=== PATIENT | male | born 2000 | race Caucasian/White ===

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

== ENCOUNTER 2018-06-19 17:01 | Emergency (ER) | payer BC ==
--- NOTE | 2018-06-19 17:51 | ER Document Report ---
ED Hand/Wrist Injury - General Chief Complaint: Thumb Injury Stated Complaint: LEFT HAND INJURY Time Seen by Provider: 06/19/18 17:38 Mode of Arrival: Ambulatory Information source: Patient Notes: Patient is a 17-year-old otherwise healthy male who presents with chief complaint of 4 cm laceration to his left. Patient reports that he was fixing an axe when the Axe cut through his finger. TRAVEL OUTSIDE OF THE [place] IN LAST 30 DAYS: No - Related Data Allergies/Adverse Reactions: No Known Allergies Allergy (Verified 09/17/17 10:45) Past Medical History - General Information source: Patient - Social History Smoking Status: Current Every Day Smoker Lives with: Family Family History: Arthritis, CAD, CVA, DM, Hyperlipidemia, Hypertension, Malignancy Pulmonary Medical History: Reports: Hx Asthma Renal/ Medical History: Denies: Hx Peritoneal Dialysis Psychiatric Medical History: Reports: Hx Attention Deficit Hyperactivity Disorder Past Surgical History: Reports: Hx Genitourinary Surgery - circimscised, Hx Myringotomy - Immunizations Immunizations up to date: Yes Hx Diphtheria, Pertussis, Tetanus Vaccination: Yes Review of Systems - Review of Systems Musculoskeletal: See HPI Skin: See HPI -: Yes All other systems reviewed and negative Physical Exam - Vital signs Vitals: Temp Pulse Resp BP Pulse Ox 98.5 F 71 18 143/92 H 100 06/19/18 17:16 06/19/18 17:16 06/19/18 17:16 06/19/18 17:16 06/19/18 17:16 - Notes Notes: PHYSICAL EXAMINATION: GENERAL: Well-appearing, well-nourished and in no acute distress. HEAD: Atraumatic, normocephalic. EYES: Pupils equal round extraocular movements intact, conjunctiva are normal. ENT: Nares patent NECK: Normal range of motion LUNGS: No respiratory distress Musculoskeletal: Normal range of motion, normal sensation distal to injury, active bleeding noted at this time. A 4 cm laceration noted across the right thumb which does go across the nail. NEUROLOGICAL: Normal speech, normal gait. PSYCH: Normal mood, normal affect. SKIN: Warm, Dry, normal turgor, no rashes or lesions noted. See musculoskeletal exam Course - Re-evaluation Re-evalutation: Digital block performed to left thumb while patient is soaking the wound. X-ray with possible tuft fracture, non-dislocated. Laceration repair performed under sterile technique, see procedure note, patient tolerated well. - Vital Signs Vital signs: Temp Pulse Resp BP Pulse Ox 98.6 F 76 18 140/75 H 95 06/19/18 19:53 06/19/18 19:53 06/19/18 19:53 06/19/18 19:53 06/19/18 19:53 Procedures - Immobilization Left thumb Pre-Proc Neuro Vasc Exam: Normal Immobilizer type: Finger splint (Static) Performed by: PCT Post-Proc Neuro Vasc Exam: Normal - Laceration/Wound Repair left thumb Wound length (cm): 4 Wound's Depth, Shape: Superficial, Irregular Anesthetic type: 1% Lidocaine Volume Anesthetic (mLs): 6 Wound explored: Clean Irrigated w/ Saline (mLs): 200 Wound Debrided: Minimal Wound Repaired With: Sutures Suture Size/Type: 4:0, Nylon Number of Sutures: 13 Layer Closure?: No Discharge - Discharge Clinical Impression: Laceration, Closed fracture of tuft of distal phalanx of finger Condition: Stable Disposition: HOME, SELF-CARE Additional Instructions: Laceration Care Your laceration has been sutured to keep the skin edges aligned during healing. The time of suture removal depends on the nature and location of your cut. Please follow the care instructions the doctor has outlined for you and return for further care, according to the schedule you've been given. Keep the wound and dressing clean. Unless you were told otherwise, you may shower daily, blotting the wound dry with a clean, unused towel. At other times, If the dressing gets wet or blood soaked, remove it and blot the wound dry, then reapply a new dressing. Unless you were instructed otherwise, dressings should be changed at least daily. If any signs of infection occur (swelling, redness, increasing tenderness, red streaks, tender lumps in the armpit or groin above the laceration, or fever) , see the doctor immediately. Tetanus Immunization Given You have been given an immunization against tetanus. Please record this in your records. In general, a booster is needed only once every 10 years. The tetanus shot protects against tetanus or "lockjaw," which is a complication of certain wound infections (the tetanus shot cannot protect against the actual infection). The immunization site may become warm and red due to local reaction. If this occurs, apply warm compresses and take aspirin or ibuprofen to reduce inflammation and discomfort. Return for evaluation if the reaction becomes severe. Please call orthopedics to set up a follow-up appointment for the possible tuft fracture to the finger. Keep the splint in place in between dressing changes. Please return to the emergency department or your primary care provider in 12-14 days for suture removal. Please return earlier if you develop any signs of infection such as increased redness, swelling, foul- smelling drainage or fever. Prescriptions: Doxycycline Hyclate 100 mg PO BID #14 capsule Referrals: KARENA SNOW, [ACTIVE STAFF] - Follow up as needed
[2018-06-19] MEDS ORDERED: LIDOCAINE 1% INJ-PF (10 MG/ML) 30 ML SDV INJ ONE (17:58)
--- NOTE | 2018-06-19 18:31 | RADIOLOGY REPORT (SQ) ---
EXAM DESCRIPTION: FINGER LEFT COMPLETED DATE/TIME: 06/19/2018 5:57 pm REASON FOR STUDY: Hit L thumb with an axe COMPARISON: None. NUMBER OF VIEWS: Three views. TECHNIQUE: AP, lateral, and oblique images acquired of the left thumb. LIMITATIONS: None. FINDINGS: MINERALIZATION: Normal. BONES: On the AP image there can be seen to be a fracture of the terminal tuft. SOFT TISSUES: Soft tissue injury is seen. OTHER: No other significant finding. IMPRESSION: Soft tissue injury. There appears to be a fracture of the terminal tuft. COMMENT: SITE OF TRAUMA/COMPLAINT MARKED/STAMP COMPLETED: Yes TECHNICAL DOCUMENTATION: JOB ID: [id number] [employer]- All Rights Reserved Reading location - IP/workstation name: [email or web address]
[2018-06-19] MEDS ORDERED: DIPH/PERTUSS(ACELL)/TETANUS VAC/PF 0.5 ML SYR (>=10YO) IM ONE (18:49)
[2018-06-19] MEDS ORDERED: DOXYCYCLINE HYCLATE 100 MG TABLET PO ONE (19:26)
[2018-06-19 19:55] VITALS: BP 140/75
== END 2018-06-19 19:55 | disposition home or self-care (01) ==
LOC: ER 17:01
DX: S62.639A Displaced fracture of distal phalanx of unspecified finger, initial encounter for closed fracture (principal); S61.112A Laceration without foreign body of left thumb with damage to nail, initial encounter; W27.0XXA Contact with workbench tool, initial encounter; Y93.89 Activity, other specified; F17.200 Nicotine dependence, unspecified, uncomplicated
CPT/HCPCS: 99283; 90471; 73140; 90715; 12002; J3490